=== PATIENT | male | born 1985 | race Two or more races ===

== ENCOUNTER 2021-04-19 06:26 | Emergency (ER) | payer OTHER ==
[~2021-04-19] VITALS: Ht 167.6 cm; Wt 70.5 kg
[2021-04-19 06:34] VITALS: BP 123/87
== END 2021-04-19 08:23 | disposition home or self-care (01) ==
LOC: EMS 06:32
DX: S82.842A Displaced bimalleolar fracture of left lower leg, initial encounter for closed fracture (principal); F17.210 Nicotine dependence, cigarettes, uncomplicated; W10.9XXA Fall (on) (from) unspecified stairs and steps, initial encounter; Y93.02 Activity, running; Y92.89 Other specified places as the place of occurrence of the external cause; Y99.8 Other external cause status
CPT/HCPCS: 29515; 99284